=== PATIENT | female | born 1955 | race American Indian/Alaskan Native ===

== ENCOUNTER 2021-06-08 03:06 | Emergency (ER) | payer MEDICARE, OTHER ==
[2021-06-08 03:16] VITALS: BP 179/110
--- NOTE | 2021-06-08 04:17 | XRay Report ---
CHEST 2 VIEWS INDICATION / CLINICAL INFORMATION: dizziness. COMPARISON: None available. FINDINGS: SUPPORT DEVICES: None. HEART / MEDIASTINUM: No significant abnormality. LUNGS / PLEURA: No significant pulmonary or pleural abnormality. No pneumothorax. ADDITIONAL FINDINGS: No significant additional findings. IMPRESSION: 1. No active cardiopulmonary disease. Signer Name: Conrad Ash II, MD Signed: 06/08/2021 4:13 AM Workstation Name: [id number]
[2021-06-08 04:38] LABS: Basophils # (Auto) 0.1 K/mm3 (0.0-0.1); Basophils % (Auto) 1.3 % (0.0-1.8); Eosinophils # (Auto) 0.1 K/mm3 (0.0-0.4); Hemoglobin 11.7 gm/dl (10.1-14.3); Lymphocytes # (Auto) 1.8 K/mm3 (1.2-5.4); Lymphocytes % (Auto) 29.1 % (13.4-35.0); Mean Corpuscular HGB Conc 35 % (30-34); Mean Corpuscular Volume 88 fl (79-97); Monocytes # (Auto) 0.5 K/mm3 (0.0-0.8); Monocytes % (Auto) 7.2 % (0.0-7.3); Platelet Count 257 K/mm3 (140-440); Red Blood Count 3.85 M/mm3 (3.65-5.03); Red Cell Distribution Width 13.5 % (13.2-15.2)
[2021-06-08 04:44] LABS: Alanine Aminotransferase 11 units/L (7-56); BUN/Creatinine Ratio 15; Blood Urea Nitrogen 12 mg/dL (7-17); Calcium 9.5 mg/dL (8.4-10.2); Hemolysis Index 4
[2021-06-08 06:25] LABS: Bilirubin,Urine NEG (Negative); Blood,Urine SM (Negative); Color,Urine Straw (Yellow); Urobilinogen,Urine < 2.0 mg/dL (<2.0)
[2021-06-08 06:34] LABS: Protein,Urine >500 mg/dL (Negative)
--- NOTE | 2021-06-08 06:39 | Emergency Department Report ---
ED Dizziness HPI - General Chief Complaint: Dizziness Stated Complaint: DIZZINESS/LT LEG PAIN Time Seen by Provider: 06/08/21 06:24 Source: patient, family Mode of arrival: Wheelchair Limitations: No Limitations - History of Present Illness Initial Comments: Patient presents with multiple complaints and concerns. She had a recent breast reduction. This was done at the end of May. She has had pain in the posterior aspect of the right leg. This is in the calf area. It is a localized pain that does not radiate or migrate. It is sharp. It is worse with palpation. She has not noted unilateral leg edema. Is been present for couple of days. She also noticed that she has had intermittent dizzy episodes. She states that the room is spinning. This seems to be worse when she turns her head. It is worse when she stands up. She states that these episodes do come and go in the last hours when they hit her. This current episode woke her up from sleep. Patient also states that she has a bump on the right foot. That has been present for "a while." It does not cause her pain, but she thought she would have it evaluated while she was here. She states that she also hears her heart and feels her heartbeat pounding in her right ear. There is no pain associated with this. She is not really reported a change in hearing. She just had multiple symptoms and decided to come here for evaluation and treatment. - Related Data Home Medications Medication Instructions Recorded Confirmed Last Taken Losartan/Hydrochlorothiazide 1 each PO DAILY 06/08/21 06/08/21 Unknown [Losartan-Hctz 100-25 mg Tab] amLODIPine [Norvasc] 5 mg PO DAILY 06/08/21 06/08/21 Unknown Previous Rx's Medication Instructions Recorded Last Taken Type Meclizine HCl 25 mg PO 4XD PRN #20 tab 06/08/21 Unknown Rx Allergies Allergy/AdvReac Type Severity Reaction Status Date / Time No Known Allergies Allergy Unverified 06/08/21 03:08 ED Review of Systems ROS: Stated complaint: DIZZINESS/LT LEG PAIN Other details as noted in HPI Comment: All other systems reviewed and negative Constitutional: denies: fever Eyes: denies: eye pain ENT: as per HPI Respiratory: denies: cough Cardiovascular: denies: chest pain Endocrine: denies: unexplained weight loss Gastrointestinal: denies: vomiting, diarrhea Genitourinary: denies: dysuria Musculoskeletal: as per HPI. denies: back pain Skin: denies: rash Neurological: denies: headache Hematological/Lymphatic: denies: easy bruising ED Past Medical Hx - Past Medical History Hx Hypertension: Yes - Family History Family history: hypertension - Social History Smoking Status: Never Smoker - Medications Home Medications: Home Medications Medication Instructions Recorded Confirmed Last Taken Type Losartan/Hydrochlorothiazide 1 each PO DAILY 06/08/21 06/08/21 Unknown History [Losartan-Hctz 100-25 mg Tab] Meclizine HCl 25 mg PO 4XD PRN #20 tab 06/08/21 Unknown Rx amLODIPine [Norvasc] 5 mg PO DAILY 06/08/21 06/08/21 Unknown History ED Physical Exam - General Limitations: No Limitations, Other (Pulse ox noted and normal) General appearance: alert, in no apparent distress - Head Head exam: Present: atraumatic, normocephalic - Eye Eye exam: Present: normal appearance, PERRL, EOMI. Absent: scleral icterus - ENT ENT exam: Present: normal orophraynx, TM's normal bilaterally, normal external ear exam - Neck Neck exam: Present: normal inspection. Absent: meningismus - Respiratory Respiratory exam: Present: normal lung sounds bilaterally. Absent: respiratory distress - Cardiovascular Cardiovascular Exam: Present: regular rate, normal rhythm - GI/Abdominal GI/Abdominal exam: Present: soft. Absent: tenderness - Extremities Exam Extremities exam: Present: normal capillary refill, calf tenderness (Well localized 1 cm area in the posterior aspect of the right calf proximally that is tender. No warmth or erythema noted. Patient has a ganglionic cyst of the dorsum of the right foot) - Back Exam Back exam: Absent: CVA tenderness (R), CVA tenderness (L) - Neurological Exam Neurological exam: Present: alert, oriented X3, CN II-XII intact, normal gait, reflexes normal, other (NIH score is 0.). Absent: motor sensory deficit - Psychiatric Psychiatric exam: Present: normal affect, normal mood - Skin Skin exam: Present: warm, dry ED Course Vital Signs 06/08/21 03:15 Temperature 98.3 F Pulse Rate 65 Respiratory 18 Rate Blood Pressure 179/110 [Right] O2 Sat by Pulse 99 Oximetry - Reevaluation(s) Reevaluation #1: 06/08/21 06:39 Doppler ordered. Reevaluation #2: 06/08/21 07:35 Labs noted. Ultrasound is pending. UA has been reviewed but the patient has no symptoms suggestive of urinary infection. Reevaluation #3: 06/08/21 08:30 Venous Doppler was noted and normal. At this time, patient was discharged. ED Medical Decision Making - Lab Data Result diagrams: 06/08/21 04:11 06/08/21 04:11 - Radiology Data Radiology results: report reviewed - Medical Decision Making Patient presents with multiple issues. She had complained of some right calf pain postoperatively. There was no evidence of DVT. She did not have warmth or erythema suggestive of cellulitis. There was no injury or trauma noted. She complained of vertiginous type symptoms. She did have symptoms that were consistent with a benign vertigo. These were intermittent. This was not insid ious onset. I do not believe this represents a central vertigo. She had a normal NIH score at 0. I do not believe this represents a stroke. Patient did complain of a lesion on the dorsum of the right foot and this is consistent with a ganglionic cyst. This can be managed as an outpatient. She also reported pounding sensation or hearing her heartbeat in her right ear. There is no evidence of otitis media or otitis externa. She does not have a cerumen impaction. There was no change in hearing suggestive of labyrinthitis. Critical Care Time: No Critical care attestation.: If time is entered above; I have spent that time in minutes in the direct care of this critically ill patient, excluding procedure time. ED Disposition Clinical Impression: Vertigo, Right calf pain, Ganglion cyst Disposition: 01 HOME / SELF CARE / HOMELESS Is pt being admited?: No Condition: Stable Instructions: How to Use Cold Therapy, [id number], How to Perform the Damion Maneuver, Dizziness Additional Instructions: Drink plenty of water. Return for problems. Try ice to the right calf. Follow-up with your family doctor or the referral doctor for recheck and further management. Prescriptions: Meclizine HCl 25 mg PO 4XD PRN #20 tab PRN Reason: Vertigo Referrals: PRIMARY MD MARIAN [Referring] - 3-5 Days KADIE REYES MD [Staff Physician] - 3-5 Days
[2021-06-08] MEDS ORDERED: MECLIZINE 25 MG TAB PO ONE (06:40)
--- NOTE | 2021-06-08 08:18 | Vascular Lab Report ---
VL venous duplex LE RT INDICATION / CLINICAL INFORMATION: post-op calf pain. TECHNIQUE: Duplex doppler imaging was performed using venous compression and other maneuvers. COMPARISON: None available. FINDINGS: No venous thrombosis is identified within the visualized extremity vasculature. ADDITIONAL FINDINGS: None. IMPRESSION: 1. No sonographic evidence for DVT in the visualized right lower extremity vasculature. Signer Name: Mohsen Fitzgerald MD Signed: 06/08/2021 8:14 AM Workstation Name: [id number]
--- NOTE | 2021-06-08 09:22 | Electrocardiograph Report ---
[facility] Test Date: 2021-06-08 Test Time: 03:21:42 Pat Name: BUSHRA YOUNG Department: Room: Gender: F Grants Officer: OSIRIS : 1955 Requested By: JARED MURO Order Number: [id number] Reading MD: Héctor Haney Measurements Intervals [place] Rate: 60 P: 40 PA: 174 QRS: 48 QRSD: 87 T: 50 QT: 404 QTc: 403 Interpretive Statements Sinus rhythm No previous ECG available for comparison Electronically Signed On 06-08-2021 9:22:01 EST by Héctor Haney
== END 2021-06-08 09:05 | disposition home or self-care (01) ==
LOC: ED 03:06
DX: M67.471 Ganglion, right ankle and foot (principal); R42 Dizziness and giddiness; I10 Essential (primary) hypertension; Z79.899 Other long term (current) drug therapy
CPT/HCPCS: 36415; 71046; 80053; 81001; 84484; 85025; 93005; 99284